=== PATIENT | female | born 1970 | race Caucasian/White ===

== ENCOUNTER → 2019-04-16 | Outpatient (CLI) | payer MEDICAID, OTHER | LOC: M PLALAB 11:39 | PROVIDERS: ATTEND Surgery | DX: Z13.79 Encounter for other screening for genetic and chromosomal anomalies (principal) ==

== ENCOUNTER → 2019-04-17 | Outpatient (CLI) | payer MEDICAID, OTHER ==
--- NOTE | 2019-04-17 17:04 | REP ---
Digital diagnostic right breast mammography with CAD and focused right breast sonography: Outside film interpretation. History: Bilateral mammography from [facility] dated January 20, 2019 is reviewed in conjunction with January 20, 2019 focused right breast sonographic images. Findings: In the inferomedial quadrant of the right breast there is a relatively low density 14 mm oval-shaped breast density. Its margins are sharply circumscribed on the MLO view and somewhat less circumscribed on the CC view. Breast parenchyma is otherwise predominately fat replaced. No suspicious abnormality is noted otherwise mammographically. Right breast sonographic findings demonstrate a oval-shaped lobulated anechoic lesion with enhanced through transmission and a well defined back wall consistent with a slightly septated cyst. This measures 9 mm in greatest diameter sonographically. It is felt to correspond in location and size and contour with the mammographic opacity. I would agree with 6-month follow-up recommendation. I believe the mammographic and sonographic lesions correspond. Electronically Signed by Philip Enriquez MD 04/17/2019 06:57 P
== END ==
LOC: M RAD 13:08
PROVIDERS: ATTEND Surgery
DX: N60.01 Solitary cyst of right breast (principal)

== ENCOUNTER → 2020-08-03 | Outpatient (CLI) | payer OTHER ==
[~2020-08-03] MED LIST: ATOR1TAB19 PO; VITAD400CA FT
[2020-08-03 16:42] VITALS: BP 134/84
--- NOTE | 2020-08-10 11:58 | ROOPDOC ---
[facility] Report Of Operation Report of Operation DATE OF PROCEDURE: 08/03/2020 DIAGNOSIS: right breast suspicious lesion PROCEDURE: ultrasound guided biopsy of the right breast suspicious lesion at 5:00 with clip placement, palpation guided/ ultrasound assisted biopsy of the right lower outer quadrant palpable mass with clip placement and Punch biopsy of the skin changes at the right lateral inframammary fold SURGEON: Devyn Delcid BLOOD LOSS: minimal COMPLICATIONS: none Lidocaine 1% LOT [id number] Expiration 03/2024 Sodium Bicarbonate 8.4% LOT [id number] Expiration 03/2027 RIGHT 5:00 BX Hydromark clip LOT [id number] Expiration 07/2022 SHAPE : 3 Bx device: BARD [id number] x10 cm LOT [id number] Expiration 05/2023 (new device per bx) RIGHT PALPABLE MASS AT THE INFRAMAMMARY FOLD Hydromark clip LOT [id number] Expiration 12/2022 SHAPE : 4 Bx device: BARD [id number] x10 cm LOT [id number] Expiration 05/2023 (new device per bx) RIGHT INFRAMMAMARY FOLD SKIN CHANGES PUNCH BIOPSY 6 MM punch biopsy device Informed consent was obtained. The most common risk and possible complications including bleeding, hematoma, bruising, infection, injury to surrounding structures were explained to the patient and the patient expressed understanding. Patient was placed on the bed in the supine position. Appropriate time out was done stating patients name, date of , and the procedure to be performed. The right breast was prepped and draped in the usual fashion. The ultrasound was used to confirm the location of the lesion in the right Breast at 5:00 2 centimeters from the nipple. The mass at 7:00 which was considered suspicious by radiology department was not seen during my sonographic examination. The wood cutter also was not able to identify the 7:00 lesion. Palpation was used to find the right lateral inframammary mass. Procedure was started with right breast 5:00 2 CFN mass. Plain Lidocaine 1% and 8.4% sodium bicarbonate 10:1 mix was used to anesthetize the skin, the biopsy site and tissues along the anticipated biopsy tract. Small skin incision was made with blade number 11. BARD Marquee 14G cannula with introducer ([id number]) was inserted through the incision and advanced under the ultrasound guidance to position immediately adjacent to the lesion. Next, the introducer was removed and BARD Marquee 14G biopsy device was places in the cannula. Pre-biopsy imaging, and post-biopsy imaging were captured. Five good core biopsies were taken at various levels of the lesion. Specimen was placed in formaldehyde, labeled with appropriate biopsy site and patients name, and sent to pathology for evaluation. Next, the biopsy device was withdrawn and a clip introducer was inserted into the biopsy site via the cannula. SHAPE 3 Hydromark clip was deployed under sonographic guidance. Post-clip placement image was captured. Manual pressure over the biopsy cavity and tract was held after the clip introducer was withdrawn. No bleeding was noted upon removal of the pressure. Next, our attention was turned toward the right inframammary fold palpable mass. Palpation was used to locate the mass. Patient previously confirmed this location. Skin was also marked over the mass. Ultrasound was used to assure safe trajectory of the biopsy and to avoid injury to surrounding structures Plain Lidocaine 1% and 8.4% sodium bicarbonate 10:1 mix was used to anesthetize the skin, the biopsy site and tissues along the anticipated biopsy tract. Small skin incision was made with blade number 11. BARD Marquee 14G cannula with introducer ([id number]) was inserted through the incision and advanced under the ultrasound guidance to position immediately adjacent to the palpable mass. Again, palpation was used to guide the biopsy. Next, the introducer was removed and BARD Marquee 14G biopsy device was places in the cannula. Pre-biopsy imaging, and post-biopsy imaging were captured. Five good core biopsies were taken at various levels of the lesion. Specimen was placed in formaldehyde, labeled with appropriate biopsy site and patients name, and sent to pathology for evaluation. Next, the biopsy device was withdrawn and a clip introducer was inserted into the biopsy site via the cannula. SHAPE 4 Hydromark clip was deployed under sonographic guidance. Post-clip placement image was captured. Manual pressure over the biopsy cavity and tract was held after the clip introducer was withdrawn. No bleeding was noted upon removal of the pressure. At this point, we proceeded with the right inframammary fold skin changes punch biopsy. The right inframammary fold re-was prepped and re-draped in the usual fashion. Plain Lidocaine 1% and 8.4% sodium bicarbonate 10:1 mix was used to anesthetize the skin at the biopsy site. 6 mm punch biopsy device was used to take a sample at the site of suspicious skin changes. Specimen was placed in formaldehyde, labeled with appropriate biopsy site and patients name, and sent to pathology for evaluation. The skin defect was closed with chromic suture. Steri strips were placed over the site at the end of the procedure. Post-biopsy mammogram of the right breast was obtained and showed the 5:00 clip in expected position. The palpable mass clip was not seen as it is likely very posterior. Postprocedural dressing was placed. Patient tolerated procedure well. Discharge instructions were discussed with the patient and the patient expressed understanding. DEVYN DELCID DO Aug 10, 2020 11:57
== END ==
LOC: M WHCPRO 15:33
PROVIDERS: ATTEND Surgery
DX: N60.12 Diffuse cystic mastopathy of left breast (principal); N60.21 Fibroadenosis of right breast
CPT/HCPCS: 11104; 19083; 77065; 88305; G0279

== ENCOUNTER → 2020-09-08 | Outpatient (CLI) | payer OTHER ==
[2020-09-08 15:41] VITALS: BP 112/82
--- NOTE | 2020-09-08 16:12 | REP ---
INDICATION: N63.10 RT BREAST MASS,POST US GUIDED BIOPSY. COMPARISON: Comparison mammography July 28, 2020 and August 03, 2020. TECHNIQUE: Craniocaudal and mediolateral views of the right breast are obtained post marker clip placement under ultrasound guidance. Patient underwent ultrasound-guided needle biopsy. There was no mammographic correlate to the biopsied ultrasound target on initial mammography. This mammogram was interpreted with the aid of an FDA-approved computer-aided detection system. FINDINGS: The recently placed needle biopsy marker clip is seen in the inferomedial aspect of the right breast in the anterior 3rd unchanged from the August 03, 2020 study. Today's marker clip is seen inferiorly and just lateral to the plane of the right nipple at approximately the 7 o'clock position. There is some soft tissue biopsy artifact but no hematoma. IMPRESSION: Marker clip in position right breast post ultrasound-guided needle biopsy of the 7 o'clock sonographic target.. RECOMMENDATION: According to biopsy results. <Electronically signed by Giles Enriquez > 09/08/20 [id number]
--- NOTE | 2020-09-08 19:32 | REP ---
INDICATION: N63.10 RT BREAST MASS,US GUIDED BIOPSY. COMPARISON: None. TECHNIQUE: The procedure was performed under the general supervision of Dr. Enriquez. The patient has a history of a solid nodule seen in the right breast at the 7 o'clock position on a previous ultrasound dated 07/28/2020. The risks and benefits of the procedure were explained to the patient and informed consent was obtained. The right breast nodule was localized using ultrasound guidance. The skin was prepped and draped in a sterile fashion. 7 mL of 1% Xylocaine was used as a local anesthetic. Using ultrasound guidance a 14-gauge coaxial needle biopsy system was inserted and6 core biopsy samples were obtained. A marker clip (HydroMARK shape 1) was placed at the biopsy site The patient tolerated the procedure well and there were no immediate complications. After the appropriate amount of monitored convalescence, the patient was discharged from the department. EBL: Less than 1 a FINDINGS: None IMPRESSION: Ultrasound-guided right breast biopsy with marker clip placement (HydroMARK shape 1) <Electronically signed by August Mcclendon > 09/08/20 1635 <Electronically signed by Giles Enriquez > 09/08/20 [id number]
== END ==
LOC: M WHCPRO 06:32
PROVIDERS: ATTEND Surgery
DX: N63.10 Unspecified lump in the right breast, unspecified quadrant (principal)

== ENCOUNTER → 2023-02-21 | Outpatient (CLI) | payer OTHER | LOC: M WHC 08:31 | PROVIDERS: ATTEND Nurse Practitioner Adult Health | DX: Z12.31 Encounter for screening mammogram for malignant neoplasm of breast (principal); Z13.820 Encounter for screening for osteoporosis ==

== ENCOUNTER → 2023-04-12 | Outpatient (CLI) | payer OTHER ==
[~2023-04-12] MED LIST changes: +IRON325T2 PO; +MM S100C PO
== END ==
LOC: M WUC 11:30
PROVIDERS: ATTEND Nurse Practitioner Adult Health
DX: Z01.818 Encounter for other preprocedural examination (principal)

== ENCOUNTER 2023-04-19 11:22 | Day surgery (SDC) | payer OTHER ==
[~2023-04-19] VITALS: Ht 170.2 cm; Wt 116.2 kg
[2023-04-19] MEDS: LR 1,000 ML IV SCH (12:22)
[2023-04-19] MEDS ORDERED: fentaNYL 100 MCG/2 ML INJECTION As Ordered ONE (13:40)
[2023-04-19] MEDS ORDERED: ACETAMINOPHEN 1000MG 100ML IV BAG As Ordered ONE (13:40)
[2023-04-19] MEDS ORDERED: KETOROLAC 60MG 2ML VIAL As Ordered ONE (13:40)
[2023-04-19] MEDS ORDERED: ONDANSETRON 4MG 2ML VIAL As Ordered ONE (13:40)
[2023-04-19] MEDS ORDERED: MIDAZOLAM INJ 2MG/2ML VIAL As Ordered ONE (13:40)
[2023-04-19] MEDS ORDERED: SUGAMMADEX SODIUM 500 MG/5 ML VIAL (BRIDION) As Ordered ONE (13:41)
[2023-04-19] MEDS ORDERED: propofoL 200 MG/20 ML VIAL As Ordered ONE (13:41)
[2023-04-19] MEDS ORDERED: ROCURONIUM BROMIDE 50MG/5ML VIAL As Ordered ONE (13:41)
[2023-04-19] MEDS ORDERED: LIDOCAINE 2% 100MG/5ML SDV (FOR ANES.) As Ordered ONE (13:41)
[2023-04-19] MEDS: AMPICILLIN SOD/SULBACTAM SOD 3 GM in D5W MINI-BAG PLUS 100 ML IV ONE (14:51)
[2023-04-19] MEDS: LIDOCAINE 2% W/ EPINEPHRINE 1.7 ML DENTAL INJ As Ordered ONE (15:00)
[2023-04-19] MEDS: CHLORHEXIDINE GLUCONATE 0.12 % 15ML UDC (PERIDEX ORAL RINSE) As Ordered ONE (15:04)
[2023-04-19] MEDS ORDERED: LABETALOL 100MG/20ML VIAL As Ordered ONE (15:08)
[2023-04-19] MEDS ORDERED: fentaNYL 100 MCG/2 ML INJECTION IV PRN (16:05)
[2023-04-19] MEDS ORDERED: ONDANSETRON 4MG 2ML VIAL IV PRN (16:05)
[2023-04-19] MEDS ORDERED: MORPHINE 2 MG/ML 1ML VIAL IV PRN (16:05)
[2023-04-19] MEDS ORDERED: oxyCODONE 5MG TAB PO PRN (16:05)
[2023-04-19 17:15] VITALS: BP 124/82; TEMP 97.1; O2SAT 95
== END 2023-04-19 17:32 | disposition home or self-care (01) ==
LOC: M SDC 11:22
PROVIDERS: ATTEND Dentist
DX: K08.9 Disorder of teeth and supporting structures, unspecified (principal); Z68.41 Body mass index [BMI] 40.0-44.9, adult; Z79.899 Other long term (current) drug therapy
CPT/HCPCS: 88300; D7140; D7210; D7310; D7311; D7473; D9223; J0131; J0295; J1100; J1885; J1920; J2250; J2405; J3010